=== PATIENT | female | born 1960 | race Caucasian/White ===

== ENCOUNTER 2022-12-21 13:37 | Emergency (ER) | payer BC, MEDICARE ==
[~2022-12-21] VITALS: Ht 152.4 cm; Wt 84.8 kg
[2022-12-21 13:51] VITALS: BP 139/79
--- NOTE | 2022-12-21 14:00 | NUR ---
62/F WALKED IN C/O ABSCESS TO CHEST. AFEBRILE AT TRIAGE. PMH: DENIES
--- NOTE | 2022-12-21 14:50 | NUR ---
Patient discharged with v/s stable. Written and verbal after care instructions given and explained. Patient verbalized understanding. Ambulatory with steady gait. All questions addressed prior to discharge. Advised to follow up with PMD.
== END 2022-12-21 14:50 | disposition home or self-care (01) ==
LOC: MED 13:37
DX: N63.20 Unspecified lump in the left breast, unspecified quadrant (principal); Z86.39 Personal history of other endocrine, nutritional and metabolic disease
CPT/HCPCS: 99282